=== PATIENT | female | born 1980 | race American Indian/Alaskan Native ===

== ENCOUNTER 2021-02-24 22:09 | Emergency (ER) | payer SELFPAY ==
[2021-02-24 23:55] LABS: Bacteria,Urine 1+ /HPF (Negative); Bilirubin,Urine NEG (Negative); Blood,Urine SM (Negative); Color,Urine Yellow (Yellow); Mucus,Urine 3+ /HPF
[2021-02-25 00:38] LABS: Basophils % (Auto) 0.3 % (0.0-1.8); Eosinophils % (Auto) 0.5 % (0.0-4.3); Hematocrit 39.9 % (30.3-42.9); Hemoglobin 13.5 gm/dl (10.1-14.3); Lymphocytes # (Auto) 1.4 K/mm3 (1.2-5.4); Lymphocytes % (Auto) 15.6 % (13.4-35.0); Mean Corpuscular HGB Conc 34 % (30-34); Mean Corpuscular Volume 91 fl (79-97); Monocytes # (Auto) 0.4 K/mm3 (0.0-0.8); Monocytes % (Auto) 4.1 % (0.0-7.3); Platelet Count 302 K/mm3 (140-440); Red Blood Count 4.38 M/mm3 (3.65-5.03); Red Cell Distribution Width 13.9 % (13.2-15.2)
[2021-02-25 02:12] LABS: Alanine Aminotransferase 18 units/L (7-56); Albumin 4.9 g/dL (3.9-5); Blood Urea Nitrogen 8 mg/dL (7-17); Hemolysis Index 1
[2021-02-25 02:13] LABS: BUN/Creatinine Ratio 13
[2021-02-25] MEDS ORDERED: ONDANSETRON 4 MG/2 ML INJ IV ONE (03:15)
[2021-02-25] MEDS ORDERED: FAMOTIDINE 20 MG/2 ML INJ IV ONE (03:15)
[2021-02-25] MEDS ORDERED: SODIUM CHLORIDE 0.9% 1000 ML 1,000 ML IV ONE (03:15)
[2021-02-25] MEDS ORDERED: ONDANSETRON 4 MG ODT TAB PO ONE (05:47)
[2021-02-25] MEDS ORDERED: oxyCODONE /ACETAMINOPHEN 5-325MG TAB PO ONE (05:47)
[2021-02-25] MEDS ORDERED: KETOROLAC 30 MG/1 ML INJ IM ONE (05:47)
--- NOTE | 2021-02-25 06:45 | Emergency Department Report ---
<DILLON BARRAZA - Last Filed: 02/25/21 07:02> ED Abdominal Pain HPI - General Chief Complaint: Abdominal Pain Stated Complaint: ABDOMINAL/THIGH/BACK PAIN Source: patient Mode of arrival: Wheelchair Limitations: No Limitations - History of Present Illness Initial Comments: Patient is a 40-year-old -[place] female with a history of recurrent kidney stones who presents to the ED with complaint of acute onset persistent severe left flank pain that radiates to the left lower quadrant and suprapubic area as well as left hip with nausea and vomiting intermittently for the last 3 days. Patient states the pain has been constant, and that she was unable to sleep because of worsening pain. Patient states that she suspected that she may be having kidney stones again based on the symptoms. Patient denies fall, traumatic injury, dizziness, syncope, diarrhea, dysuria, urinary frequency and urgency, vaginal bleeding, vaginal discharge, heavy lifting, numbness and tingling or weakness of lower extremities bilaterally. MD Complaint: abdominal pain (Left flank and left lower abdominal pain), flank pain (Left flank pain), other (Left hip pain) -: Sudden, days(s) (3) Location: LLQ, L flank Radiation: LLQ, suprapubic, L flank, other (Left hip) Migration to: no migration Severity: severe Severity scale (0 -10): 8 Quality: aching, sharp Consistency: constant Improves With: nothing Worsens With: movement Associated Symptoms: denies other symptoms, nausea, vomiting. denies: diarrhea, fever, constipation, dysuria, hematemesis, hematochezia, melena, anorexia, syncope - Related Data LMP Date: 02/11/21 Previous Rx's Medication Instructions Recorded Last Taken Type oxyCODONE /ACETAMINOPHEN [Percocet 1 tab PO Q6HR PRN #20 tablet 11/22/19 Unknown Rx 5/325] Acetaminophen/Codeine [Tylenol 1 tab PO Q4HR PRN #12 tablet 02/25/21 Unknown Rx /Codeine # 3 tab] Ibuprofen [Motrin] 800 mg PO Q8HR PRN #30 tablet 02/25/21 Unknown Rx Ondansetron [Zofran Odt] 4 mg PO Q8HR #15 tab.rapdis 02/25/21 Unknown Rx Allergies Allergy/AdvReac Type Severity Reaction Status Date / Time No Known Allergies Allergy Verified 11/17/19 18:51 ED Review of Systems Constitutional: denies: chills, fever Eyes: denies: eye pain, eye discharge, vision change ENT: denies: ear pain, throat pain Respiratory: denies: cough, shortness of breath, wheezing Cardiovascular: denies: chest pain, palpitations Endocrine: no symptoms reported Gastrointestinal: abdominal pain (Right flank pain radiating to the left lower quadrant), nausea, vomiting. denies: diarrhea Genitourinary: denies: urgency, dysuria, discharge Musculoskeletal: back pain (Low back pain), arthralgia (Left hip pain). denies: joint swelling Skin: denies: rash, lesions Neurological: denies: headache, weakness, paresthesias Psychiatric: denies: anxiety, depression Hematological/Lymphatic: denies: easy bleeding, easy bruising ED Past Medical Hx - Past Medical History Previous Medical History?: Yes Hx Kidney Stones: Yes - Surgical History Past Surgical History?: Yes Hx Cholecystectomy: Yes - Social History Smoking Status: Never Smoker Substance Use Type: None - Medications Home Medications: Home Medications Medication Instructions Recorded Confirmed Last Taken Type oxyCODONE /ACETAMINOPHEN [Percocet 1 tab PO Q6HR PRN #20 tablet 11/22/19 Unknown Rx 5/325] Acetaminophen/Codeine [Tylenol 1 tab PO Q4HR PRN #12 tablet 02/25/21 Unknown Rx /Codeine # 3 tab] Ibuprofen [Motrin] 800 mg PO Q8HR PRN #30 tablet 02/25/21 Unknown Rx Ondansetron [Zofran Odt] 4 mg PO Q8HR #15 tab.rapdis 02/25/21 Unknown Rx ED Physical Exam - General Limitations: No Limitations General appearance: alert, in no apparent distress - Head Head exam: Present: atraumatic, normocephalic, normal inspection - Eye Eye exam: Present: normal appearance, PERRL, EOMI Pupils: Present: normal accommodation - ENT ENT exam: Present: normal exam, normal orophraynx, mucous membranes moist, TM's normal bilaterally, normal external ear exam - Neck Neck exam: Present: normal inspection, full ROM - Respiratory Respiratory exam: Present: normal lung sounds bilaterally. Absent: respiratory distress, wheezes, rales, rhonchi, chest wall tenderness, accessory muscle use - Cardiovascular Cardiovascular Exam: Present: regular rate, normal rhythm, normal heart sounds. Absent: systolic murmur, diastolic murmur, rubs, gallop - GI/Abdominal GI/Abdominal exam: Present: soft, tenderness (Palpable left flank and left lower quadrant tenderness), normal bowel sounds. Absent: guarding, rebound, hype ractive bowel sounds, hypoactive bowel sounds, organomegaly - Extremities Exam Extremities exam: Present: normal inspection, full ROM, tenderness (Palpable left hip tenderness), normal capillary refill - Back Exam Back exam: Present: normal inspection, full ROM, tenderness (Palpable left lateral lumbosacral paraspinal musculoskeletal tenderness), muscle spasm, paraspinal tenderness. Absent: CVA tenderness (L), vertebral tenderness - Neurological Exam Neurological exam: Present: alert, oriented X3, CN II-XII intact, normal gait, reflexes normal - Psychiatric Psychiatric exam: Present: normal affect, normal mood - Skin Skin exam: Present: warm, dry, intact, normal color. Absent: rash ED Medical Decision Making - Lab Data Result diagrams: 02/25/21 00:00 02/25/21 00:00 - Radiology Data Radiology results: report reviewed, image reviewed [address] [address] Cat Scan Report Signed Patient: GARY LEONG MR#: [id number] 1829 : 1980 Acct:[id number] Age/Sex: 40 / F ADM Date: 02/24/21 Loc: ED Attending Dr: Ordering Physician: SHANNAN MUÑOZ Date of Service: 02/25/21 Procedure(s): CT abdomen pelvis wo con Accession Number(s): [id number] cc: SHANNAN MUÑOZ CT OF THE ABDOMEN AND PELVIS WITHOUT CONTRAST INDICATION / CLINICAL INFORMATION: Left flank pain for 3 days. TECHNIQUE: All CT scans at this location are performed using CT dose reduction for ALARA by means of automated exposure control. COMPARISON: 11/17/19. FINDINGS: ABDOMEN: There is no evidence of renal calculus, hydronephrosis, perinephric soft tissue stranding or mass. The gallbladder is surgically absent. The liver, spleen, bile ducts, pancreas, adrenal glands and bowel demonstrate no significant abnormality. No adenopathy is identified in the lung bases are clear. PELVIS: There is a 12 cm cystic mass in the midline of the pelvis which measured 11.3 cm previously. The mass is probably ovarian, but is difficult to determine which ovary the mass arises from. The uterus is normal. No free fluid is seen. The no evidence of appendicitis or diverticulitis. I do not identify a hernia. No acute osseous abnormality is present. IMPRESSION: 1. 12 cm cystic mass in the pelvis is probably ovarian and has shown minimal change since the prior study. Transabdominal/transvaginal ultrasound may be helpful in further characterization. 2. Interval cholecystectomy. Signer Name: Telly Bartlett MD Signed: 02/25/2021 6:47 AM Workstation Name: [id number] Transcribed By: RT Dictated By: Telly Bartlett MD Electronically Authenticated By: Telly Bartlett MD Signed Date/Time: 02/25/21646 DD/ 9 TD/TT: - Medical Decision Making This is a 40-year-old -[place] female with a history of recurrent kidney stones who presents to the ED with complaint of acute onset persistent severe left flank pain that radiates to the left lower quadrant and suprapubic area as well as left hip with nausea and vomiting intermittently for the last 3 days. Patient states the pain has been constant, and that she was unable to sleep because of worsening pain. Patient states that she suspected that she may be having kidney stones again based on the symptoms. In the ED, patient is alert and oriented x3 and is not in any distress. Patient however appears to be in pain crying during the physical exam. Patient was treated in the ED with pain medications and antiemetics. Lab test results were reviewed and are all nonacti onable. Abdomen pelvis CT scan without contrast showed a 12 cm cystic mass in the pelvis is probably ovarian and has shown minimal change since the prior study. Transabdominal/transvaginal ultrasound may be helpful in further characterization. Transvaginal ultrasound was therefore ordered. Patient care was transferred to Ms. Fernanda Murray PA-C at shift change at 0700 hrs. - Differential Diagnosis Kidney stones; ovarian cyst; colitis; UTI; muscle spasm; cancer ED Disposition Clinical Impression: Acute abdominal pain in left flank, Nausea and vomiting in adult patient, Pelvic mass, Ovarian cyst Disposition: - TO HOME OR SELFCARE Is pt being admited?: No Does the pt Need Aspirin: No Condition: Stable Instructions: Nausea and Vomiting, Adult, [id number], Ovarian Cyst, Abdominal Pain (ED) Additional Instructions: It is important that you follow up with the [facility] for further evaluation and treatment of your large left ovarian cyst. Take the Tylenol threes and the Motrin as needed if the pain returns. Take the Zofran as needed for nausea and vomiting. Return to the ER if your symptoms changes or worsens in any way. Prescriptions: Ibuprofen [Motrin] 800 mg PO Q8HR PRN #30 tablet PRN Reason: Pain, Moderate (4-6) Acetaminophen/Codeine [Tylenol /Codeine # 3 tab] 1 tab PO Q4HR PRN #12 tablet PRN Reason: Pain Ondansetron [Zofran Odt] 4 mg PO Q8HR #15 tab.rapdis Referrals: [facility] [Provider Group] - 2-3 Days [facility] [Provider Group] - 2-3 Days [facility] [Provider Group] - 2-3 Days Forms: Work/School Release Form(ED) Time of Disposition: 06:47 Print Language: MOROCCAN <FERNANDA MURRAY - Last Filed: 02/25/21 08:37> ED Review of Systems ROS: Stated complaint: ABDOMINAL/THIGH/BACK PAIN Other details as noted in HPI ED Course Vital Signs 02/24/21 02/25/21 23:14 06:55 Temperature 98.3 F Pulse Rate 77 Respiratory 18 18 Rate Blood Pressure 148/93 O2 Sat by Pulse 100 Oximetry ED Medical Decision Making - Lab Data Result diagrams: 02/25/21 00:00 02/25/21 00:00 - Radiology Data Patient: GARY LEONG MR#: [id number] 1829 : 1980 Acct:[id number] Age/Sex: 40 / F ADM Date: 02/24/21 Loc: ED Attending Dr: Ordering Physician: SHANNAN MUÑOZ Date of Service: 02/25/21 Procedure(s): US transvaginal Accession Number(s): [id number] cc: SHANNAN MUÑOZ ULTRASOUND TRANSVAGINAL INDICATION / CLINICAL INFORMATION: Pelvic pain, mass. TECHNIQUE: Transvaginal. Duplex Color Doppler used: Yes. COMPARISON: MRCP 11/18/2019. CT abdomen pelvis without contrast 02/25/2021. FINDINGS: UTERUS: Present. - Appearance (if present): No significant abnormality. - Size in cm (if present): 9.3 x 5.0 x 5.6. - Endometrial Complex (if present): No significant abnormality.. Thickness in cm (if measured) = 0.8 - Mass lesions: None. - Additional findings: Tiny nabothian cysts in the cervix. RIGHT ADNEXA: There is a small simple appearing cyst in the right ovary measuring 1.4 x 0.9 cm. Normal color Doppler blood flow. The right ovary measures 3.5 x 2.3 x 2.4 cm. LEFT ADNEXA: A large unilocular simple appearing cyst is identified in the left adnexa measuring up to 11.6 x 8.5 cm. Left ovarian tissue is not confidently identified on transva ginal imaging. Color Doppler blood flow appears normal but is limited. URINARY BLADDER: No significant abnormality. FREE FLUID: None. ADDITIONAL FINDINGS: None. IMPRESSION: A large unilocular left ovarian cyst is identified measuring up to 11.6 cm in greatest dimension. Its overall appearance is unchanged since the previous CT and MRI. 1.4 cm simple appearing cyst in the right ovary. Signer Name: Cory Elizondo Jr, MD Signed: 02/25/2021 7:47 AM Workstation Name: [id number] Transcribed By: TTR Dictated By: CORY ELIZONDO JR, MD Electronically Authenticated By: CORY ELIZONDO JR, MD Signed Date/Time: 02/25/2147 DD/ TD/TT: - Medical Decision Making 0715: Patient was turned over to mi by Dillon Barraza PA-C; Case, and the results of the current labs and CT were discussed. CT showed that patient had a large cystic mass in the pelvis and recommend an ultrasound. Ultrasound was ordered and is pending. 0831: Patient resting comfortably in the room. She is not in any acute distress. She is not toxic or ill-appearing. She is neurologically intact. Ultrasound of the pelvis reviewed and it showed a large unilocular left ovarian cyst is identified measuring up to 11.6 cm in greatest dimension, and a smaller 1.4 cm cyst on the right. No torsion, or abscess noted on ultrasound. CT/labs/Ultrasound report was reviewed with patient. At this time there is no indication for admission or emergent OB consult. Informed that it is important that she follows up with the [facility] for further evaluation and treatment of this large ovarian cyst. Patient given a copy of the ultrasound and the CT scan report to take with her to the [facility] visit. Informed her that she will be given referral information to [facility] for follow-up but she states that she is going to [facility] across the [facility] today to make an appointment. Patient was stable at time of discharge. Critical care attestation.: If time is entered above; I have spent that time in minutes in the direct care of this critically ill patient, excluding procedure time. ED Disposition Is pt being admited?: No Does the pt Need Aspirin: No Time of Disposition: 08:26
--- NOTE | 2021-02-25 06:51 | Cat Scan Report ---
CT OF THE ABDOMEN AND PELVIS WITHOUT CONTRAST INDICATION / CLINICAL INFORMATION: Left flank pain for 3 days. TECHNIQUE: All CT scans at this location are performed using CT dose reduction for ALARA by means of automated exposure control. COMPARISON: 11/17/19. FINDINGS: ABDOMEN: There is no evidence of renal calculus, hydronephrosis, perinephric soft tissue stranding or mass. The gallbladder is surgically absent. The liver, spleen, bile ducts, pancreas, adrenal glands and bowel demonstrate no significant abnormality. No adenopathy is identified in the lung bases are c lear. PELVIS: There is a 12 cm cystic mass in the midline of the pelvis which measured 11.3 cm previously. The mass is probably ovarian, but is difficult to determine which ovary the mass arises from. The antolin marilee is normal. No free fluid is seen. The no evidence of appendicitis or diverticulitis. I do not key ntify a hernia. No acute osseous abnormality is present. IMPRESSION: 1. 12 cm cystic mass in the pelvis is probably ovarian and has shown minimal change since the prior s tudy. Transabdominal/transvaginal ultrasound may be helpful in further characterization. 2. Interval cholecystectomy. Signer Name: Telly Bartlett MD Signed: 02/25/2021 6:47 AM Workstation Name: [id number]
--- NOTE | 2021-02-25 07:51 | Ultrasound Report ---
ULTRASOUND TRANSVAGINAL INDICATION / CLINICAL INFORMATION: Pelvic pain, mass. TECHNIQUE: Transvaginal. Duplex Color Doppler used: Yes. COMPARISON: MRCP 11/18/2019. CT abdomen pelvis without contrast 02/25/2021. FINDINGS: UTERUS: Present. - Appearance (if present): No significant abnormality. - Size in cm (if present): 9.3 x 5.0 x 5.6. - Endometrial Complex (if present): No significant abnormality.. Thickness in cm (if measured) = 0.8 - Mass lesions: None. - Additional findings: Tiny nabothian cysts in the cervix. RIGHT ADNEXA: There is a small simple appearing cyst in the right ovary measuring 1.4 x 0.9 cm. Mami l color Doppler blood flow. The right ovary measures 3.5 x 2.3 x 2.4 cm. LEFT ADNEXA: A large unilocular simple appearing cyst is identified in the left adnexa measuring up t o 11.6 x 8.5 cm. Left ovarian tissue is not confidently identified on transvaginal imaging. Color Dop pler blood flow appears normal but is limited. URINARY BLADDER: No significant abnormality. FREE FLUID: None. ADDITIONAL FINDINGS: None. IMPRESSION: A large unilocular left ovarian cyst is identified measuring up to 11.6 cm in greatest dimension. It s overall appearance is unchanged since the previous CT and MRI. 1.4 cm simple appearing cyst in the right ovary. Signer Name: Cory Elizondo Jr, MD Signed: 02/25/2021 7:47 AM Workstation Name: [id number]
[2021-02-25 08:44] VITALS: BP 150/94
== END 2021-02-25 08:44 | disposition home or self-care (01) ==
LOC: ED 22:09
DX: N83.202 Unspecified ovarian cyst, left side (principal); R19.00 Intra-abdominal and pelvic swelling, mass and lump, unspecified site; R11.2 Nausea with vomiting, unspecified; Z90.49 Acquired absence of other specified parts of digestive tract; Z79.899 Other long term (current) drug therapy
CPT/HCPCS: 36415; 74176; 76830; 80053; 81001; 83690; 84703; 85025; 96372; 99284; J1885; Q0162